=== PATIENT | male | born 1980 | race Caucasian/White ===

== ENCOUNTER 2016-08-15 12:13 | Emergency (ER) | payer OTHER ==
[~2016-08-15] VITALS: Ht 175.3 cm; Wt 64.0 kg
[2016-08-15 12:24] VITALS: Ht 175.3 cm; Wt 64.0 kg
[2016-08-15] MEDS ORDERED: BENZ100C70 PO (14:15)
[2016-08-15] MEDS ORDERED: CETI10CA PO (14:15)
[2016-08-15] MEDS ORDERED: IBUP-1542 PO (14:16)
--- NOTE | 2016-08-15 17:00 | ERD ---
ER Documentation Chief Complaint Date/Time DATE: 08/15/16 TIME: 16:[address] X 3 DAYS HPI Patient is a 36-year-old male who presents to the ED with cough, sore throat 3 days. He complains of a productive cough. Denies difficulty breathing or swallowing. Denies headache, dizziness, neck pain or stiffness. Denies chest pain, shortness of breath or difficulty breathing. Denies abdominal pain, nausea, vomiting or diarrhea. Denies fever chills. States that his girlfriend has had similar symptoms at home. Denies leg pain or swelling, recent surgery or recent travel. No other complaints. Has not taking any medication for his symptoms. ROS All systems reviewed and are negative except as per history of present illness. Medications Home Meds Active Scripts Ibuprofen* (Motrin*) 600 Mg Tab, 600 MG PO Q6, #30 TAB Prov:CHRISSY LOMBARDI PA-C 08/15/16 Cetirizine Hcl* (Zyrtec*) 10 Mg Capsule, 10 MG PO DAILY, #10 TAB.CHEW Prov:CHRISSY LOMBARDI PA-C 08/15/16 Benzonatate* (Tessalon Perle*) 100 Mg Capsule, 100 MG PO TID for 10 Days, CAP Prov:CHRISSY LOMBARDI PA-C 08/15/16 PMhx/Soc History of Surgery: No Anesthesia Reaction: No Hx Neurological Disorder: No Hx Respiratory Disorders: No Hx Cardiac Disorders: No Hx Psychiatric Problems: No Hx Miscellaneous Medical Probl: No Hx Alcohol Use: No Hx Substance Use: Yes (Marijuana every other day) Hx Tobacco Use: No Smoking Status: Never smoker Physical Exam Vitals Vital Signs Date Time Temp Pulse Resp B/P Pulse Ox O2 Delivery O2 Flow Rate FiO2 08/15/16 12:24 98.1 68 20 121/55 97 Physical Exam GENERAL: Well-developed, well-nourished male. Appears in no acute distress. HEAD: Normocephalic, atraumatic. EYES: Pupils are equally reactive bilaterally. EOMs grossly intact. No conjunctival erythema. ENT: Moist mucous membranes. No uvula deviation. No kissing tonsils. No exudates. NECK: Supple. No lymphadenopathy or thyromegaly. No meningismus. negative kernig. negative brudinski. LUNG: Clear to auscultation bilaterally. No rhonchi, wheezing, rales or coarse breath sounds. HEART: Regular rate and rhythm. No murmurs, rubs or gallops. SKIN: Normal color. Warm and dry. No rashes or lesions. Capillary refill < 2 seconds Procedures/MDM ER COURSE: I kept the patient and/or family informed of laboratory and diagnostic imaging results throughout the emergency room course. MEDICAL DECISION MAKING: This is a 36-year-old male who presents with sore throat, cough 3 days. Vital signs were reviewed. Patient is afebrile. Patient is not hypoxic. Patient is not toxic or ill-appearing. Temperature 98.1 with an O2 sat of 97. Patient likely has URI of viral etiology. Low suspicion for pneumonia, PE, pneumothorax , ACS, epiglottitis, obstruction, TB, pertussis, meningitis, sepsis. PERC Criteria Assessment: Age > 50: No HR > 100: No 02 < 95%: No H/o DVT/PE: No Recent trauma/surgery: No Hemoptysis: No Exogenous Estrogen: No Unilateral Leg swelling: No Pretest probability > 15%: No [Less than 2% risk of PE. No further work up is necessary] DISCHARGE: At this time, patient is stable for discharge and outpatient management with no new complaints during the ER course. Patient was sent home with ibuprofen, Zyrtec and Tessalon Perles. Patient will be discharged home with instructions to recheck for new or worsening symptoms such as fever, nausea, weakness, LOC and to follow up with primary care in the next 1-2 days. Patient was advised to return to the ER for any new or worsening symptoms. Plan was discussed and patient and/or family understands and agrees. Home instructions were given. Departure Diagnosis: Primary Impression: URI, acute Condition: Stable Patient Instructions: Uri, Viral, No Abx (Adult) Additional Instructions: Call your primary care doctor TOMORROW for an appointment during the next 1-2 days.See the doctor sooner or return here if your condition worsens before your appointment time. CHRISSY LOMBARDI PA-C Aug 15, 2016 17:00
== END 2016-08-15 14:17 | disposition home or self-care (01) ==
LOC: FTE 12:13 → E/R 14:17
DX: J06.9 Acute upper respiratory infection, unspecified (principal)
CPT/HCPCS: 99283